=== PATIENT | male | born 1985 | race Caucasian/White ===

== ENCOUNTER 2017-07-31 21:35 | Emergency (ER) | payer SELFPAY ==
[~2017-07-31] VITALS: Ht 193 cm; Wt 88.5 kg
[~2017-07-31 21:35] MED LIST: CYCL-36 PO; TYLE3 PO; Z.0.NO CURRENT MEDS
[2017-07-31 21:37] VITALS: BP 126/85; PULSE 80; RESP 16; TEMP 98.5; O2SAT 97
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
== END 2017-07-31 22:56 | disposition left against medical advice (07) ==
LOC: NEPD 21:35
DX: M54.2 Cervicalgia (principal)
CPT/HCPCS: 99281

== ENCOUNTER 2018-01-01 15:27 | Emergency (ER) | payer SELFPAY ==
[~2018-01-01] VITALS: Ht 193 cm; Wt 90.0 kg
[2018-01-01 15:50] VITALS: BP 129/76; PULSE 95; RESP 15; TEMP 98.3; O2SAT 94
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
== END 2018-01-01 19:09 | disposition home or self-care (01) ==
LOC: NEPE 15:27
DX: F10.129 Alcohol abuse with intoxication, unspecified (principal); F19.90 Other psychoactive substance use, unspecified, uncomplicated; Z72.0 Tobacco use
CPT/HCPCS: 99283

== ENCOUNTER 2018-04-05 17:58 | Emergency (ER) | payer SELFPAY ==
[~2018-04-05] VITALS: Ht 193 cm; Wt 93.0 kg
[2018-04-05 18:03] VITALS: BP 135/80; PULSE 99; RESP 16; TEMP 97.8; O2SAT 99
== END 2018-04-05 18:12 | disposition left against medical advice (07) ==
LOC: NEPE 17:58
DX: T50.901A Poisoning by unspecified drugs, medicaments and biological substances, accidental (unintentional), initial encounter (principal)
CPT/HCPCS: 99281